=== PATIENT | male | born 1975 ===

== ENCOUNTER 2022-02-04 12:39 | Outpatient (REF) | payer OTHER, SELFPAY ==
[2022-02-05 16:43] LABS: Appearance Normal; Container Type 50 mL Conical; Motile/Ejaculate 2.2 x10(6) (>=9.0); Motile/mL 1.1 x10(6) (>=6.0); Motility 17 % (>=40); Sperm/mL 6.3 x10(6) (>=15.0); Study Type Semen; Supravital Stain 29 % live (>=58); pH 8.5 (>=7.2)
[2022-02-06 12:11] LABS: Acrosom Defect 23.5 %; Double Forms 4.5 %; Midpiece Defect 16.5 %; Tail Defect 27.5 %
== END 2022-02-04 12:40 | disposition home or self-care (01) ==
LOC: LBN 12:39
PROVIDERS: Visit Provider Advanced Practice Midwife
DX: Z31.41 Encounter for fertility testing (principal)
CPT/HCPCS: 89240; 89310